=== PATIENT | female | born 1985 | race African-American/Black ===

== ENCOUNTER 2019-06-22 02:25 | Inpatient (IN) | payer MEDICAID ==
[~2019-06-22] VITALS: Ht 170.2 cm; Wt 73.0 kg
[2019-06-22] MEDS ORDERED: ONDANSETRON 4 MG/2 ML VIAL IV ONE (03:00)
[2019-06-22] MEDS ORDERED: HYDROMORPHONE 1 MG/1 ML DISP.SYRIN IV ONE ×2 (03:00→12:15)
[2019-06-22] MEDS ORDERED: PANTOPRAZOLE SODIUM 40 MG VIAL IV ONE (03:00)
[2019-06-22] MEDS ORDERED: ONDANSETRON 4 MG/2 ML VIAL ONE (03:08)
[2019-06-22] MEDS ORDERED: PANTOPRAZOLE SODIUM 40 MG VIAL ONE (03:08)
[2019-06-22] MEDS ORDERED: HYDROMORPHONE 1 MG/1 ML DISP.SYRIN ONE ×2 (03:08→04:03)
[2019-06-22 03:28] LABS: BASOPHILS # (AUTO) 0.1 K/uL (0.0-8.0); BASOPHILS % (AUTO) 1.1 % (0.0-2.0); EOSINOPHILS # (AUTO) 0.2 K/uL (0.0-0.7); EOSINOPHILS % (AUTO) 4.1 % (0.0-7.0); HEMATOCRIT 29.1 % (31.2-41.9); HEMOGLOBIN 8.9 g/dL (10.9-14.3); LYMPHOCYTES # (AUTO) 1.4 K/uL (20.0-40.0); LYMPHOCYTES % (AUTO) 25.1 % (20.5-51.5); MEAN CORPUSCULAR HGB CONC 31 g/dL (32.3-35.6); MEAN CORPUSCULAR VOLUME 68.4 fL (75.5-95.3); MONOCYTES # (AUTO) 0.5 K/uL (2.0-10.0); MONOCYTES % (AUTO) 9.1 % (0.0-11.0); NEUTROPHILS # (AUTO) 3.5 K/uL (1.8-8.9); NEUTROPHILS % (AUTO) 60.6 % (38.5-71.5); PLATELET COUNT (AUTO) 522 K/uL (179-408); RED BLOOD CELL COUNT(AUTO) 4.25 MIL/uL (3.63-4.92); WHITE BLOOD COUNT (AUTO) 5.7 K/uL (3.8-11.8)
[2019-06-22 03:31] LABS: *BILIRUBIN,URIN NEGATIVE (NEGATIVE); *BLOOD, URINE NEGATIVE (NEGATIVE); *CLARITY,URINE CLEAR (CLEAR); *COLOR,URINE YELLOW (YELLOW); *KETONES,URINE NEGATIVE (NEGATIVE); LEUKOCYTE ESTERASE ,URINE NEGATIVE (NEGATIVE); NITRITE, URINE NEGATIVE (NEGATIVE); UGLUCOSE NEGATIVE (NEGATIVE)
[2019-06-22 03:35] LABS: *URINE HCG, QUAL NEGATIVE (NEGATIVE)
[2019-06-22 03:41] LABS: CREATININE 0.8 mg/dL (0.6-1.3)
[2019-06-22 03:43] LABS: BACTERIA,URINE NONE SEEN /HPF (NONE SEEN); RBC,URINE 0-3 /HPF (0-3); WBC,URINE 0-3 /HPF (0-3)
[2019-06-22 03:44] LABS: SQUAMOUS EPITHELIAL CELL,UR FEW /HPF (NONE SEEN)
[2019-06-22 03:47] LABS: BILIRUBIN,DIRECT 0.2 mg/dL (0.0-0.2); BILIRUBIN,TOTAL 0.5 mg/dL (0.2-1.0); TOTAL PROTEIN, SERUM 6.8 g/dL (6.4-8.2)
[2019-06-22] MEDS ORDERED: HYDROMORPHONE 1 MG/1 ML DISP.SYRIN IM ONE (04:00)
[2019-06-22] MEDS ORDERED: ONDANSETRON ODT 4 MG TAB.RAPDIS SL ONE (04:00)
[2019-06-22] MEDS ORDERED: HYDROMORPHONE 2 MG/1 ML DISP.SYRIN ONE ×2 (04:03→05:08)
[2019-06-22] MEDS ORDERED: ONDANSETRON ODT 4 MG TAB.RAPDIS ONE (04:05)
[2019-06-22] MEDS ORDERED: lexapro PO (04:46)
[2019-06-22] MEDS ORDERED: DOCU100C36 PO (04:46)
[2019-06-22] MEDS ORDERED: [UNRECOGNIZED DRUG - CODE] MC (04:46)
[2019-06-22] MEDS ORDERED: PANT40TA4 PO (04:46)
[2019-06-22] MEDS ORDERED: RIVA20TA PO (04:46)
[2019-06-22] MEDS ORDERED: BECL10.6 IH (04:46)
[2019-06-22] MEDS ORDERED: ZOLP5TAB2 PO (04:46)
[2019-06-22] MEDS ORDERED: ZOLP12.52 PO (04:46)
[2019-06-22] MEDS ORDERED: ALBU18HF2 IH (04:46)
[2019-06-22] MEDS ORDERED: ZOFRAN SL (04:46)
[2019-06-22] MEDS ORDERED: TRIA15OI9 TP (04:46)
[2019-06-22] MEDS ORDERED: GENT5DRO4 OP (04:46)
[2019-06-22] MEDS ORDERED: OMEP20TA20 PO (04:46)
[2019-06-22] MEDS ORDERED: PRED20TA PO (04:46)
[2019-06-22] MEDS ORDERED: propranolol (04:46)
[2019-06-22] MEDS ORDERED: SUCR1TAB31 PO (04:46)
[2019-06-22] MEDS ORDERED: CLON1TAB PO (04:46)
[2019-06-22] MEDS ORDERED: ASPI-605 PO (04:46)
[2019-06-22] MEDS ORDERED: PANTOPRAZOLE SODIUM 40 MG TABLET.DR PO ONE ×2 (05:00→05:07)
[2019-06-22] MEDS ORDERED: HYDROMORPHONE 2 MG/1 ML DISP.SYRIN IM PRN (05:15)
[2019-06-22 06:54] VITALS: BP 119/67
[2019-06-22 11:22] VITALS: BP 129/57
[2019-06-22] MEDS: HYDROMORPHONE 1 MG/1 ML DISP.SYRIN IV PRN ×2 (11:59→12:04)
[2019-06-22] MEDS: ONDANSETRON 4 MG/2 ML VIAL IV PRN ×2 (12:15→20:16)
[2019-06-22] MEDS: IV NS 1000 ML 1,000 ML IV PRN (12:25)
[2019-06-22] MEDS ORDERED: HYDROMORPHONE 1 MG/1 ML DISP.SYRIN IV PRN (13:30)
[2019-06-22 15:03] VITALS: BP 116/69
[2019-06-22] MEDS: HYDROMORPHONE 2 MG/1 ML DISP.SYRIN IV PRN ×2 (16:15→20:14)
[2019-06-22] MEDS ORDERED: ESCI10TA PO (16:42)
[2019-06-22] MEDS ORDERED: GABA-534 PO (16:44)
[2019-06-22] MEDS ORDERED: FERR325T28 PO (16:45)
[2019-06-22 20:15] VITALS: BP 96/52
[2019-06-23] MEDS: HYDROMORPHONE 2 MG/1 ML DISP.SYRIN IV PRN ×7 (00:09→23:31)
[2019-06-23] MEDS: IV NS 1000 ML 1,000 ML IV PRN ×3 (00:10→23:35)
[2019-06-23] MEDS ORDERED: HYDROMORPHONE 1 MG/1 ML DISP.SYRIN IV ONE (03:00)
[2019-06-23 03:40] VITALS: BP 109/62
[2019-06-23] MEDS: ONDANSETRON 4 MG/2 ML VIAL IV PRN ×3 (07:45→19:18)
[2019-06-23] MEDS: ALBUTEROL SULFATE 2.5 MG/3 ML NEBU NEB SCH ×2 (11:00→19:29)
[2019-06-23] MEDS ORDERED: ZOLPIDEM 5 MG TABLET PO PRN (11:00)
[2019-06-23 11:08] VITALS: BP 107/61
[2019-06-23] MEDS: SUCRALFATE 1 G TABLET PO SCH ×2 (11:30→15:34)
[2019-06-23 14:00] VITALS: BP 111/66
[2019-06-23 14:43] LABS: CARBON DIOXIDE 27 mmol/L (21-32); CHLORIDE 108 mmol/L (98-107); CREATININE 0.5 mg/dL (0.6-1.3); GLUCOSE 96 mg/dL (74-106); MAGNESIUM 1.9 mg/dL (1.8-2.4); PHOSPHOROUS 3.7 mg/dL (2.5-4.9); POTASSIUM 3.9 mmol/L (3.5-5.1); UREA NITROGEN, BLOOD 5 mg/dL (7-18)
[2019-06-23 14:48] LABS: BASOPHILS % (AUTO) 0.7 % (0.0-2.0); EOSINOPHILS # (AUTO) 0.2 K/uL (0.0-0.7); EOSINOPHILS % (AUTO) 3.3 % (0.0-7.0); HEMATOCRIT 27.4 % (31.2-41.9); HEMOGLOBIN 8.3 g/dL (10.9-14.3); LYMPHOCYTES # (AUTO) 0.6 K/uL (20.0-40.0); LYMPHOCYTES % (AUTO) 12.7 % (20.5-51.5); MEAN CORPUSCULAR HEMOGLOBIN 21.2 uug (24.7-32.8); MEAN CORPUSCULAR HGB CONC 30 g/dL (32.3-35.6); MEAN CORPUSCULAR VOLUME 70.2 fL (75.5-95.3); MONOCYTES # (AUTO) 0.3 K/uL (2.0-10.0); MONOCYTES % (AUTO) 7.1 % (0.0-11.0); NEUTROPHILS # (AUTO) 3.5 K/uL (1.8-8.9); NEUTROPHILS % (AUTO) 76.2 % (38.5-71.5); PLATELET COUNT (AUTO) 434 K/uL (179-408); RED BLOOD CELL COUNT(AUTO) 3.91 MIL/uL (3.63-4.92); WHITE BLOOD COUNT (AUTO) 4.7 K/uL (3.8-11.8)
[2019-06-23 15:20] LABS: EOSINOPHILS % (MANUAL) 4 % (0-8); LYMPHOCYTES % (MANUAL) 13 % (20-40); MONOCYTES % (MANUAL) 7 % (2-10); NEUTROPHILS % (MANUAL) 76 % (42-75)
[2019-06-23] MEDS: FERROUS SULFATE 325 MG TABEC PO SCH (15:34)
[2019-06-23] MEDS: DOCUSATE SODIUM 100 MG CAPSULE PO SCH (16:08)
[2019-06-23] MEDS ORDERED: ALBUTEROL SULFATE 8 GM HFA.AER.AD IH SCH (17:00)
[2019-06-23] MEDS: RIVAROXABAN 10 MG TABLET PO SCH (17:45)
[2019-06-24] MEDS: HYDROMORPHONE 2 MG/1 ML DISP.SYRIN IV PRN ×7 (03:40→23:19)
[2019-06-24] MEDS: ONDANSETRON 4 MG/2 ML VIAL IV PRN ×2 (03:41→11:41)
[2019-06-24] MEDS: SUCRALFATE 1 G TABLET PO SCH ×4 (06:50→15:31)
[2019-06-24 07:08] VITALS: BP 124/77
[2019-06-24] MEDS: ALBUTEROL SULFATE 2.5 MG/3 ML NEBU NEB SCH ×2 (07:44→20:53)
[2019-06-24] MEDS: predniSONE 20 MG TABLET PO SCH (08:34)
[2019-06-24] MEDS: ASPIRIN EC 81 MG TABLET.DR PO SCH (08:34)
[2019-06-24] MEDS: FERROUS SULFATE 325 MG TABEC PO SCH ×2 (08:34→16:02)
[2019-06-24] MEDS: DOCUSATE SODIUM 100 MG CAPSULE PO SCH ×2 (08:34→16:02)
[2019-06-24] MEDS: ESCITALOPRAM OXALATE 10 MG TABLET PO SCH (08:34)
[2019-06-24] MEDS: PANTOPRAZOLE SODIUM 40 MG TABLET.DR PO SCH (08:35)
[2019-06-24] MEDS ORDERED: MIDAZOLAM HCL 2 MG/2 ML VIAL ONE (09:36)
[2019-06-24 11:17] VITALS: BP 95/70
[2019-06-24] MEDS: IV NS 1000 ML 1,000 ML IV PRN (11:35)
[2019-06-24 12:55] VITALS: BP 114/60
[2019-06-24] MEDS ORDERED: HYDROMORPHONE 1 MG/1 ML DISP.SYRIN IV ONE (13:00)
[2019-06-24] MEDS ORDERED: GOLYTELY 4000 ML BOTTLE PO ONE (14:00)
[2019-06-24 15:05] VITALS: BP 120/72
[2019-06-24 15:49] LABS: BASOPHILS % (AUTO) 0.5 % (0.0-2.0); EOSINOPHILS # (AUTO) 0.3 K/uL (0.0-0.7); EOSINOPHILS % (AUTO) 6.4 % (0.0-7.0); HEMATOCRIT 27.7 % (31.2-41.9); HEMOGLOBIN 8.3 g/dL (10.9-14.3); LYMPHOCYTES # (AUTO) 0.9 K/uL (20.0-40.0); LYMPHOCYTES % (AUTO) 19.2 % (20.5-51.5); MEAN CORPUSCULAR HEMOGLOBIN 20.7 uug (24.7-32.8); MEAN CORPUSCULAR HGB CONC 30 g/dL (32.3-35.6); MEAN CORPUSCULAR VOLUME 69.4 fL (75.5-95.3); MONOCYTES # (AUTO) 0.3 K/uL (2.0-10.0); MONOCYTES % (AUTO) 7.2 % (0.0-11.0); NEUTROPHILS % (AUTO) 66.7 % (38.5-71.5); PLATELET COUNT (AUTO) 373 K/uL (179-408); WHITE BLOOD COUNT (AUTO) 4.4 K/uL (3.8-11.8)
[2019-06-24 15:55] LABS: CARBON DIOXIDE 29 mmol/L (21-32); CHLORIDE 109 mmol/L (98-107); CREATININE 0.6 mg/dL (0.6-1.3); GLUCOSE 81 mg/dL (74-106); MAGNESIUM 1.9 mg/dL (1.8-2.4); PHOSPHOROUS 3.7 mg/dL (2.5-4.9); POTASSIUM 3.6 mmol/L (3.5-5.1)
[2019-06-24 16:03] LABS: UREA NITROGEN, BLOOD 5 mg/dL (7-18)
[2019-06-24] MEDS: RIVAROXABAN 10 MG TABLET PO SCH (17:07)
[2019-06-24 19:30] VITALS: BP 124/79
[2019-06-25] MEDS: IV NS 1000 ML 1,000 ML IV PRN (01:29)
[2019-06-25] MEDS: HYDROMORPHONE 2 MG/1 ML DISP.SYRIN IV PRN ×2 (03:27→13:03)
[2019-06-25] MEDS: SUCRALFATE 1 G TABLET PO SCH ×2 (06:37→11:29)
[2019-06-25] MEDS: ALBUTEROL SULFATE 2.5 MG/3 ML NEBU NEB SCH (07:30)
[2019-06-25] MEDS ORDERED: HYDROMORPHONE 2 MG/1 ML DISP.SYRIN ONE (08:44)
[2019-06-25] MEDS ORDERED: METOCLOPRAMIDE HCL 10 MG/2 ML VIAL ONE (08:59)
[2019-06-25] MEDS: DOCUSATE SODIUM 100 MG CAPSULE PO SCH (09:00)
[2019-06-25] MEDS ORDERED: IV NS 1000 ML 1,000 ML IV PRN (09:18)
[2019-06-25] MEDS: ESCITALOPRAM OXALATE 10 MG TABLET PO SCH (09:30)
[2019-06-25] MEDS: ASPIRIN EC 81 MG TABLET.DR PO SCH (09:30)
[2019-06-25] MEDS: FERROUS SULFATE 325 MG TABEC PO SCH (09:30)
[2019-06-25] MEDS: predniSONE 20 MG TABLET PO SCH (09:30)
[2019-06-25] MEDS: PANTOPRAZOLE SODIUM 40 MG TABLET.DR PO SCH (09:30)
[2019-06-25 10:36] VITALS: BP 117/63
== END 2019-06-25 14:00 | disposition home or self-care (01) | DRG 241 ==
LOC: ER 02:28 → MEDSURG3 05:02
PROVIDERS: ADMIT Nurse Practitioner Acute Care
PROC: 0DB68ZX Excision of Stomach, Via Natural or Artificial Opening Endoscopic, Diagnostic (ICD-10-PCS; principal; 2019-06-24)
DX: K25.9 Gastric ulcer, unspecified as acute or chronic, without hemorrhage or perforation (principal); M32.9 Systemic lupus erythematosus, unspecified; F11.20 Opioid dependence, uncomplicated; K29.70 Gastritis, unspecified, without bleeding; R10.9 Unspecified abdominal pain; M35.00 Sjogren syndrome, unspecified; Z86.718 Personal history of other venous thrombosis and embolism; Z79.01 Long term (current) use of anticoagulants; Z86.711 Personal history of pulmonary embolism; Z90.49 Acquired absence of other specified parts of digestive tract; Z98.84 Bariatric surgery status; K31.89 Other diseases of stomach and duodenum; Z59.0 Homelessness; Z88.9 Allergy status to unspecified drugs, medicaments and biological substances; D50.9 Iron deficiency anemia, unspecified; K64.8 Other hemorrhoids; R19.7 Diarrhea, unspecified; Z76.5 Malingerer [conscious simulation]; Z79.52 Long term (current) use of systemic steroids
CPT/HCPCS: 36415; 83690; 83735; 84100; 84703; 85025; 88342; 93005; 94640; A4663; C9113; G0378; J1170; J2250; J2405; J2765; J7030; J7512; Q0162

== ENCOUNTER 2019-07-03 00:38 | Emergency (ER) | payer MEDICAID ==
[~2019-07-03] VITALS: Ht 170.2 cm; Wt 74.8 kg
[~2019-07-03 00:38] MED LIST: ALBU18HF2 IH; BECL10.6 IH; CLON1TAB PO; DOCU100C36 PO; ESCI10TA PO; FERR325T28 PO; GABA-534 PO; GENT5DRO4 OP; OMEP20TA20 PO; PANT40TA4 PO; SUCR1TAB31 PO; TRIA15OI9 TP; ZOFRAN SL; ZOLP5TAB2 PO; [UNRECOGNIZED DRUG - CODE] MC; propranolol
--- NOTE | 2019-07-03 00:52 | NUR ---
PT RECEIVED CRYING AND SEEKING PAIN MEDICATION AND STATES "I WANT TO TRANSFER TO [facility] BUT I WANT TO BE SEEN HERE FIRST." ABLE TO SPEAK CLEARLY AND COMPLETE SENTENCES. -FEVERS/CHILLS, -NVD, NO LOC. KEPT SAFE SIDERAILSX2 UP AND BED ON LOWEST POSITION. MONITORED ACCORDINGLY
[2019-07-03] MEDS ORDERED: ONDANSETRON ODT 4 MG TAB.RAPDIS SL ONE (01:00)
[2019-07-03] MEDS ORDERED: HYDROMORPHONE 1 MG/1 ML DISP.SYRIN IM ONE (01:00)
[2019-07-03] MEDS ORDERED: FAMOTIDINE 20 MG TABLET PO ONE (01:00)
[2019-07-03] MEDS ORDERED: diphenhydrAMINE 50 MG/1 ML VIAL IM ONE (01:00)
[2019-07-03] MEDS ORDERED: LORAZEPAM 2 MG/1 ML VIAL IM ONE (01:00)
[2019-07-03] MEDS ORDERED: ONDANSETRON ODT 4 MG TAB.RAPDIS ONE (01:14)
[2019-07-03] MEDS ORDERED: diphenhydrAMINE 50 MG/1 ML VIAL ONE (01:14)
[2019-07-03] MEDS ORDERED: FAMOTIDINE 20 MG TABLET ONE (01:14)
[2019-07-03] MEDS ORDERED: HYDROMORPHONE 1 MG/1 ML DISP.SYRIN ONE ×2 (01:17→01:34)
[2019-07-03] MEDS ORDERED: LORAZEPAM 2 MG/1 ML VIAL ONE (01:31)
--- NOTE | 2019-07-03 01:44 | NUR ---
PT REFUSED BLOOD DRAW AND ONLY REQUESTED TO RECEIVE ATIVAN,DILAUDID, BENADRYL AND ZOFRAN AND PEPCID. AND INSISTENTLY REQUESTING HIGH DOSES OF IV NARCOTICS. PT NAD, SIDERAILS X2 UP, BED AT THE LOWEST POSITION. REASSURED, REORIENTED TO GOALS OF CARE, KEPT SAFE. MONITORED ACCORDINGLY
--- NOTE | 2019-07-03 02:00 | NUR ---
PT REMOVED PULSE OX AND STATES "I DO NOT WANT THE MONITOR" PT SIGNED HOMELESS DISCHARGE FORM. COMMUNITY RESOURCES OFFERED. STATES "[facility] RECUPERATIVE [facility]ARE FOR ME. [phone]" COORDINATED BUS PASS FROM FUNERAL DIRECTOR AND EMBALMER PER PT REQUEST.
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
--- NOTE | 2019-07-03 02:55 | NUR ---
PT WAS RUMMAGING THROUGH HOSPITAL SUPPLY CABINET IN ROOM TRYING TO GET GAUZES AND SUPPLIES WITHOUT STAFF KNOWING. SECURITY AT BEDSIDE. PT ESCORTED BY SECURITY TOWARDS RESTROOM OF WAITING ROOM ALL BELONGINGS WITH PATIENT AMBULATORY WITH STABLE GAIT Patient discharged to home in stable conditon. Written and verbal after care instructions given. Patient verbalizes understanding of instructions.
[2019-07-03 02:59] VITALS: BP 109/79
== END 2019-07-03 03:00 | disposition home or self-care (01) ==
LOC: ER 00:44
DX: G89.29 Other chronic pain (principal); R10.84 Generalized abdominal pain; Z76.5 Malingerer [conscious simulation]; Z88.5 Allergy status to narcotic agent; Z88.8 Allergy status to other drugs, medicaments and biological substances; Z79.899 Other long term (current) drug therapy
CPT/HCPCS: 96372 ×3; 99283; J1170 ×2; J1200; J2060; A4663; Q0162

== ENCOUNTER 2019-07-05 15:00 | Emergency (ER) | payer MEDICAID ==
[~2019-07-05] VITALS: Ht 170.2 cm; Wt 74.8 kg
[2019-07-05] MEDS ORDERED: predniSONE 10 MG TABLET PO ONE (15:30)
[2019-07-05] MEDS ORDERED: FAMOTIDINE 20 MG TABLET PO ONE (15:30)
[2019-07-05] MEDS ORDERED: ONDANSETRON ODT 4 MG TAB.RAPDIS SL ONE (15:30)
[2019-07-05] MEDS ORDERED: ONDANSETRON ODT 4 MG TAB.RAPDIS ONE (15:30)
[2019-07-05] MEDS ORDERED: diphenhydrAMINE 50 MG/1 ML VIAL IM ONE (15:30)
[2019-07-05] MEDS ORDERED: HYDROMORPHONE 1 MG/1 ML DISP.SYRIN IM ONE ×2 (15:30→16:30)
[2019-07-05] MEDS ORDERED: diphenhydrAMINE 50 MG CAPSULE ONE (15:31)
[2019-07-05] MEDS ORDERED: predniSONE 10 MG TABLET ONE (15:31)
[2019-07-05] MEDS ORDERED: FAMOTIDINE 20 MG TABLET ONE (15:31)
[2019-07-05] MEDS ORDERED: HYDROMORPHONE 2 MG/1 ML DISP.SYRIN ONE (15:31)
[2019-07-05] MEDS ORDERED: predniSONE 50 MG TABLET ONE (15:32)
[2019-07-05] MEDS ORDERED: diphenhydrAMINE 50 MG/1 ML VIAL ONE (15:33)
[2019-07-05 15:48] LABS: BASOPHILS % (AUTO) 1.1 % (0.0-2.0); EOSINOPHILS # (AUTO) 0.2 K/uL (0.0-0.7); EOSINOPHILS % (AUTO) 4.4 % (0.0-7.0); HEMATOCRIT 32.1 % (31.2-41.9); HEMOGLOBIN 9.7 g/dL (10.9-14.3); LYMPHOCYTES # (AUTO) 0.9 K/uL (20.0-40.0); LYMPHOCYTES % (AUTO) 20.3 % (20.5-51.5); MEAN CORPUSCULAR HEMOGLOBIN 22.4 uug (24.7-32.8); MEAN CORPUSCULAR HGB CONC 30 g/dL (32.3-35.6); MEAN CORPUSCULAR VOLUME 74.1 fL (75.5-95.3); MONOCYTES # (AUTO) 0.5 K/uL (2.0-10.0); MONOCYTES % (AUTO) 10.8 % (0.0-11.0); NEUTROPHILS # (AUTO) 2.7 K/uL (1.8-8.9); NEUTROPHILS % (AUTO) 63.4 % (38.5-71.5); PLATELET COUNT (AUTO) 240 K/uL (179-408); RED BLOOD CELL COUNT(AUTO) 4.33 MIL/uL (3.63-4.92); WHITE BLOOD COUNT (AUTO) 4.2 K/uL (3.8-11.8)
[2019-07-05 15:53] LABS: CREATININE 0.7 mg/dL (0.6-1.3); POTASSIUM 3.4 mmol/L (3.5-5.1)
[2019-07-05 15:59] LABS: BILIRUBIN,DIRECT 0.2 mg/dL (0.0-0.2); BILIRUBIN,TOTAL 0.6 mg/dL (0.2-1.0); TOTAL PROTEIN, SERUM 6.6 g/dL (6.4-8.2)
[2019-07-05] MEDS ORDERED: HYDROMORPHONE 1 MG/1 ML DISP.SYRIN ONE (16:35)
--- NOTE | 2019-07-05 16:38 | NUR ---
Patient discharged to home in stable conditon. Written and verbal after care instructions given. Patient verbalizes understanding of instructions.PT WALKS IN STEADY GAIT. PT IS NOT DRIVING.PT VERBALIZES THAT SHE WILL FOLLOW UP WITH [facility].
[2019-07-05 16:45] VITALS: BP 101/71
== END 2019-07-05 16:53 | disposition home or self-care (01) ==
LOC: ER 15:00
DX: G89.29 Other chronic pain (principal); R10.84 Generalized abdominal pain; M32.9 Systemic lupus erythematosus, unspecified; Z88.5 Allergy status to narcotic agent; Z88.8 Allergy status to other drugs, medicaments and biological substances; Z79.899 Other long term (current) drug therapy
CPT/HCPCS: 36415; 80048; 80076; 83690; 84702; 85025; 85730; 96372 ×3; 99283; J1170 ×2; J1200; J7512 ×2; A4663; Q0162; Q0163